=== PATIENT | female | born 1965 | race Caucasian/White ===

== ENCOUNTER 2023-07-24 10:33 | Emergency (ER) | payer BC, SELFPAY ==
[2023-07-24 10:41] VITALS: BP 146/86; PULSE 90; RESP 16; TEMP 36.8; O2SAT 97
--- NOTE | 2023-07-24 10:58 | ED.URI ---
HPI - URI/Sore Throat General Chief Complaint: Upper Respiratory Infection Stated Complaint: 3 week old cold Time Seen by Provider: 07/24/23 10:55 Source: patient, RN notes reviewed and old records reviewed Mode of arrival: ambulatory Limitations: no limitations History of Present Illness HPI Narrative: 58 year old rosie who presents to [facility] care with complaints of 3 week duration of sinus drainage, cough, greenish tinged mucous that cleared but now back to yellow. with increased symptoms for the past 4 days. Patient reports that her throat is sore and is scratchy has had some recent chills and has felt feverish.Patient reports that she has been taking OTC cold and sinus medications. MD elicited complaint: sore throat, rhinorrhea and nasal congestion Onset (ago): week(s) (3) Pain scale (0-10): 4 Description of mucous: yellow Able to tolerate fluids by mouth: Yes Treatments prior to arrival: cold medicine and other (sinus medications) Related Data Home Medications Medication Instructions Recorded Confirmed Otc Supplements 07/24/23 Allergies Allergy/AdvReac Type Severity Reaction Status Date / Time No Known Allergies Allergy Verified 07/24/23 10:34 Review of Systems Review of Systems: CONSTITUTIONAL: Reports malaise, chills, sweats, felt feverish EYES: Denies visual changes, redness, or discharge. ENT: Reports rhinorrhea, congestion, sinus pain,no otalgia and positive for scratchy sore throat. CARDIOVASCULAR: Denies chest pain, palpitations, or edema. RESPIRATORY: Reports cough.? Denies dyspnea. GASTROINTESTINAL: Denies abdominal pain, nausea, vomiting, diarrhea SKIN: Denies rash or itching. MUSCULOSKELETAL: Denies myalgia. NEUROLOGIC: Denies headache. All systems reviewed & are unremarkable except as noted in HPI and below FOR[facility]LY [facility] Past Medical History Medical History (Updated 07/25/23 @ 21:55 by Makeda Cabello NP) Bronchitis Pneumonia Surgical History Surgical History (Updated 07/25/23 @ 21:59 by Makeda Cabello NP) History of bilateral oophorectomy History of tonsillectomy Social History Social History (Updated 07/25/23 @ 21:56 by Makeda Cabello NP) Smoking packs per day: 1 Smoking cigarettes per day: 20.0 Years smoked: 30 Smoking pack-years: 30.00 Smoking status: Current every day smoker Tobacco type: cigarettes and e-cigarettes/vaping Additional smoking assessment comments: now vapes for the past 4 years Alcohol intake: current Alcohol use details: social Substance use type: does not use Living arrangements: with family Gender identity (if verbalized by the patient): Female Comments At time of signature, agree with nursing past medical, surgical, social and family history. There is no relevant family history pertinent to the presenting complaint Exam Narrative: GENERAL: Well-appearing, well-nourished, and in no acute distress. HEAD: Normocephalic EYES: PERRLA, conjunctivae clear ENT: Nares clear, turbinates edematous and erythematous, yellow discharge, sinus pressure. Mucous membranes moist. TM pearly child with dull light reflex bilaterally; no tragal tenderness. Oropharynx erythematous without lesions. Tonsils not present and throat without exudate, no drooling, no hoarseness, no trismus, uvula midline.post nasal drainage NECK: Supple. No lymphadenopathy CHEST: Clear to auscultation, breath sounds equal. No wheezing, rhonchi, rales, or stridor. No respiratory distress, speaks in full sentences.cough productive at times, SAO2 97% on room air HEART: Regular rate and rhythm. No murmur heard. SKIN: Warm, dry, no rash. NEURO: Alert and oriented x3. PSYCH: Normal mood and affect Course Course Emergency Course: Patient is aware of diagnosis, understands and agrees to treatment plan.? Anticipatory guidance given.? Patient agrees to follow-up as directed and is aware of reasons to seek care at the emergency department
== END 2023-07-24 11:32 | disposition home or self-care (01) ==
PROVIDERS: Emergency Provider Registered Nurse; PCP Internal Medicine
DX: J01.40 Acute pansinusitis, unspecified (principal); F17.290 Nicotine dependence, other tobacco product, uncomplicated
CPT/HCPCS: 87081; 87880; 99213; G0463